=== PATIENT | female | born 1990 | race American Indian/Alaskan Native ===

== ENCOUNTER 2018-11-22 15:28 | Emergency (ER) | payer BC, MEDICAID ==
--- NOTE | 2018-11-22 16:10 | Emergency Department Report ---
Chief Complaint: Arrhythmia/Palpitations Stated Complaint: HEART PULSE RATE/VONISHBRANDS DISEASE Time Seen by Provider: 11/22/18 16:05 - HPI History of Present Illness: This is a 28 y.o. female that presents to ED for evaluation of tachycardia. Patient sent to ED from [facility]. Patient given normal saline 1 L at Urgent Care. - ROS Review of Systems: tachycardia - Exam Vital Signs: Vital Signs 11/22/18 16:05 Temperature 99.7 F H Pulse Rate 115 H Respiratory 20 Rate Blood Pressure 122/87 O2 Sat by Pulse 100 Oximetry MSE screening note: Focused history and physical exam performed. Due to findings the following was ordered: EKG and labs Fast track for further evaluation ED Disposition for MSE Condition: Stable
[2018-11-22 16:47] LABS: Basophils % (Auto) 0.3 % (0.0-1.8); Hematocrit 37.1 % (30.3-42.9); Hemoglobin 12.3 gm/dl (10.1-14.3); Lymphocytes # (Auto) 0.6 K/mm3 (1.2-5.4); Lymphocytes % (Auto) 8.1 % (13.4-35.0); Mean Corpuscular HGB Conc 33 % (30-34); Mean Corpuscular Volume 96 fl (79-97); Monocytes # (Auto) 0.4 K/mm3 (0.0-0.8); Monocytes % (Auto) 5.2 % (0.0-7.3); Platelet Count 263 K/mm3 (140-440); Red Blood Count 3.86 M/mm3 (3.65-5.03)
[2018-11-22 16:50] LABS: BUN/Creatinine Ratio 8; Blood Urea Nitrogen 4 mg/dL (7-17); Calcium 8.7 mg/dL (8.4-10.2); Hemolysis Index 3; Red Cell Distribution Width 20.5 % (13.2-15.2)
[2018-11-22] MEDS ORDERED: NACL 0.9% 1000 ML 1,000 ML IV ONE (17:50)
[2018-11-22] MEDS ORDERED: ZOFRAN IV ONE (17:51)
--- NOTE | 2018-11-22 18:21 | Emergency Department Report ---
HPI - General Chief Complaint: Arrhythmia/Palpitations Time Seen by Provider: 11/22/18 16:05 - HPI HPI: This is a 28-year-old female with a history of von Willebrand's disease controlled and managed by e commerce strategist presents today complaining of elevated p ulse rate. Patient states that she was seen at urgent care yesterday and was told her heart rate was elevated. She was given ensure tenderness fluids and was sent home. She followed up with her primary care today and was sent here from her primary care sitting that her pulse rate was still elevated. Patient does mention that she had been having 3 days with diarrhea and one episode of vomiting today. Patient states she does not recall eating anything else out of the ordinary or new. She denies fevers/chills/nausea/coughing/runny nose, chest pains or shortness of breath ED Past Medical Hx - Past Medical History Previous Medical History?: Yes Hx Asthma: Yes Additional medical history: Vonwilliebrands disease. IBS - Surgical History Past Surgical History?: No - Social History Smoking Status: Never Smoker Substance Use Type: None - Medications Home Medications: Home Medications Medication Instructions Recorded Confirmed Last Taken Type Multivitamin [Multiple Vitamins] 1 each PO DAILY #30 tablet 11/22/18 Unknown Rx Ondansetron (Nf) [Zofran TAB] 8 mg PO Q8HR PRN #30 tablet 11/22/18 Unknown Rx ED Review of Systems ROS: Stated complaint: HEART PULSE RATE/VONWILLIEBRANDS DISEASE Other details as noted in HPI Comment: All other systems reviewed and negative Physical Exam - Physical Exam Vital Signs: Vital Signs 11/22/18 11/22/18 16:05 18:01 Temperature 99.7 F H Pulse Rate 115 H Respiratory 20 18 Rate Blood Pressure 122/87 O2 Sat by Pulse 100 99 Oximetry Physical Exam: GENERAL: Alert and oriented x3, no apparent distress, Normal Gait, atraumatic. HEAD: Head is normocephalic and a-traumatic. EYES: Extra ocular muscles are intact. Pupils are equal, round, and reactive to light and accommodation. LUNGS: Symetrical with respiration, No wheezing, no rales or crackles, CTAB. HEART: S1, S2 present, regular rate and rhythm without murmur, no rubs, no gallops. Non tender to palpation ABDOMEN: No organomegaly was noted,Positive bowel sounds, soft, and non- distended. . Nontender to palpation on all Quadrants, NO CVA tenderness. BACK: Full range of motion, no spinal tenderness, nontender to palpation. SKIN: Warm and dry, No lesions, No ulceration or induration present. ED Course Vital Signs 11/22/18 11/22/18 16:05 18:01 Temperature 99.7 F H Pulse Rate 115 H Respiratory 20 18 Rate Blood Pressure 122/87 O2 Sat by Pulse 100 99 Oximetry ED Medical Decision Making - Lab Data Result diagrams: 11/22/18 16:22 11/22/18 16:22 Laboratory Last Values WBC 7.5 K/mm3 (4.5-11.0) 11/22/18 16: RBC 3.86 M/mm3 (3.65-5.03) 11/22/18 16: Hgb 12.3 gm/dl (10.1-14.3) 11/22/18 16:22 Hct 37.1 % (30.3-42.9) 11/22/18 16:22 MCV 96 fl (79-97) 11/22/18 16:22 MCH 32 pg (28-32) 11/22/18 16: MCHC 33 % (30-34) 11/22/18 16: RDW 20.5 % (13.2-15.2) H 11/22/18 16: Plt Count 263 K/mm3 (140-440) 11/22/18 16:22 Lymph % (Auto) 8.1 % (13.4-35.0) L 11/22/18 16:22 [place] % (Auto) 5.2 % (0.0-7.3) 11/22/18 16:22 Eos % (Auto) Registered Nurse Nursery 11/22/18 16:22 Baso % (Auto) 0.3 % (0.0-1.8) 11/22/18 16:22 Lymph # 0.6 K/mm3 (1.2-5.4) L 11/22/18 16:22 [place] # 0.4 K/mm3 (0.0-0.8) 11/22/18 16:22 Eos # 0.0 K/mm3 (0.0-0.4) 11/22/18 16:22 Baso # 0.0 K/mm3 (0.0-0.1) 11/22/18 16:22 Seg Neutrophils % Registered Nurse Nursery 11/22/18 16:22 Seg Neutrophils # 6.5 K/mm3 (1.8-7.7) 11/22/18 16:22 Sodium 135 mmol/L (137-145) L 11/22/18 16:22 Potassium 3.0 mmol/L (3.6-5.0) L 11/22/18 16:22 Chloride 102.7 mmol/L (98-107) 11/22/18 16:22 Carbon Dioxide 21 mmol/L (22-30) L 11/22/18 16:22 Anion Gap 14 mmol/L 11/22/18 16:22 BUN 4 mg/dL (7-17) L 11/22/18 16:22 Creatinine 0.5 mg/dL (0.7-1.2) L 11/22/18 16:22 Estimated GFR > 60 ml/min 11/22/18 16:22 BUN/Creatinine Ratio 8 % 11/22/18 16:22 Glucose 82 mg/dL (65-100) 11/22/18 16:22 Calcium 8.7 mg/dL (8.4-10.2) 11/22/18 16:22 HCG, Qual Negative (Negative) 11/22/18 16:22 - Medical Decision Making 28-year-old female presents with elevated pulse rate resolved. Patient received 1 L of fluids while in the ED along with Zofran. Patient had no active vomiting or diarrhea during ED stay. Vital signs normalize. Discharge. CBC, BMP, test were ordered. BMP shows dehydration with low electrolytes as well as BUN and creatinine. Patient was hydrated with fluids. Discussed the patient had diarrhea and vomiting does cause increased elevated heart rate. Discussed the patient to keep oral hydration and slowly start back solids. Patient is no acute distress she is resting comfortably ED bed. Critical care attestation.: If time is entered above; I have spent that time in minutes in the direct care of this critically ill patient, excluding procedure time. ED Disposition Clinical Impression: Acute diarrhea Disposition: DC-01 TO HOME OR SELFCARE Is pt being admited?: No Does the pt Need Aspirin: No Condition: Stable Instructions: Gastroenteritis (ED), Food Poisoning (ED) Additional Instructions: Make sure to follow up with the primary care physician as discussed. Increase her hydration and make sure that you're getting enough rest and fluids throughout the day keep Appointment with your e commerce strategist. If you have any worsening symptoms or develop new symptoms please return to ED immediately. Prescriptions: Multivitamin [Multiple Vitamins] 1 each PO DAILY #30 tablet Ondansetron (Nf) [Zofran TAB] 8 mg PO Q8HR PRN #30 tablet PRN Reason: Nausea Referrals: REJI TINAJERO MD [Primary Care Provider] - 3-5 Days Forms: Accompanied Note, Work/School Release Form(ED) Time of Disposition: 19:33
[2018-11-22 19:23] VITALS: BP 122/83
== END 2018-11-22 19:52 | disposition home or self-care (01) ==
LOC: ED 15:28
DX: R19.7 Diarrhea, unspecified (principal); R11.10 Vomiting, unspecified
CPT/HCPCS: 36415; 80048; 84703; 85025; 93005; 93010; 96361; 96374; 99283; J2405; J7030